=== PATIENT | male | born 1950 | race Caucasian/White ===

== ENCOUNTER 2019-07-06 13:52 | Emergency (ER) | payer MEDICARE, OTHER ==
[2019-07-06] MEDS ORDERED: Ketorolac 30 MG/ML SDV IVPUSH ONE (14:39)
--- NOTE | 2019-07-06 14:49 | EDM.PDOC ---
ED HPI GENERAL MEDICAL PROBLEM - General Chief Complaint: Back Pain or Injury Stated Complaint: STOMACH ISSUIES Time Seen by Provider: 07/06/19 14:40 Source of Information: Reports: Patient History Limitations: Reports: No Limitations - History of Present Illness INITIAL COMMENTS - FREE TEXT/NARRATIVE: c/o LBP pt with chronic LBP, got worse 10d ago for 24h, went to [facility] in [place] 8d ago, u/a with no wbc, >30 rbc, few 911-20) epi and many (>50) bacteria dx with UTI and tx with tmp/smx ds BID x 3d pain went away for 3d and felt fine, returned for f/u 3d and u/a showed 0-5 wbc , 3-5 rbc, no epi, no bacteria, referral made to urology has not seen urology is in the past altho on Flomax x 2y since he had a hemorrhagic stroke and was hospitalized in [facility], states that he had a kidney infection then denies prior prostate problems (despite being on Flomax), denies prior kidney problems or kidney stones has htn being tx by Dr Tinoco, was started on a new BP pill 2y ago when [place] went [place] and did not check his BP for 2w, when he got home and had a large bleed on the R parietal area by 's description that pt and attribute to a BP 200/100 no prior labs, imaging or visits in this EMR pain 8/10 now, mainly across lower back no temp here, no f/c/d at home, no n/v, appetite okay he had urinary incontinence one day 10d ago, denies frequency or difficulty voiding now no BM today, has had constipation not able to walk from CVA and L hemiparesis, did go to PT last week Treatments BASTING MARKER: Reports: Acetaminophen Lowe back pain Pain Score (Numeric/FACES): 7 - Related Data Allergies Allergy/AdvReac Type Severity Reaction Status Date / Time Penicillins Allergy Itching Verified 07/06/19 14:02 Home Meds: Home Meds Acetaminophen [Tylenol Extra Strength] 500 mg BID 07/06/19 [History] Acetaminophen/HYDROcodone [[place] 325-5 MG] 1 tab PO Q6H PRN #6 tab 07/06/19 [Rx] Cholecalciferol (Vitamin D3) [Vitamin D3] 2,000 unit PO DAILY 07/06/19 [History] Ciprofloxacin [Ciprofloxacin HCl] 500 mg PO BID #28 tab 07/06/19 [Rx] Ketorolac [Toradol] 10 mg PO Q6H #20 tab 07/06/19 [Rx] Losartan [Cozaar] 50 mg PO DAILY 07/06/19 [History] Omeprazole 20 mg DAILY 07/06/19 [History] Tamsulosin HCl 0.4 mg BEDTIME 07/06/19 [History] amLODIPine Besylate [Amlodipine Besylate] 5 mg DAILY 07/06/19 [History] carvediloL [Carvedilol] 3.125 mg BID 07/06/19 [History] Past Medical History Cardiovascular History: Reports: Hypertension Gastrointestinal History: Reports: GERD Genitourinary History: Reports: UTI, Recurrent Neurological History: Reports: CVA Other Neuro History: CVA with L sided weakness - Infectious Disease History Infectious Disease History: Reports: Chicken Pox, Measles, Mumps - Past Surgical History Cardiovascular Surgical History: Reports: None GI Surgical History: Reports: Bariatric Procedure Social & Family History - Family History Family Medical History: Noncontributory - Tobacco Use Used Tobacco, but Quit: Yes Month/Year Tobacco Last Used: 2017 - Caffeine Use Caffeine Use: Reports: None - Recreational Drug Use Recreational Drug Use: No ED ROS GENERAL - Review of Systems Review Of Systems: See Below Constitutional: Reports: No Symptoms HEENT: Reports: No Symptoms Respiratory: Reports: No Symptoms Cardiovascular: Reports: No Symptoms Endocrine: Reports: No Symptoms GI/Abdominal: Reports: Abdominal Pain : Reports: No Symptoms Musculoskeletal: Reports: Back Pain Skin: Reports: No Symptoms Neurological: Reports: No Symptoms Psychiatric: Reports: No Symptoms Hematologic/Lymphatic: Reports: No Symptoms Immunologic: Reports: No Symptoms ED EXAM, GENERAL - Physical Exam Exam: See Below Exam Limited By: No Limitations General Appearance: Alert, WD/WN, Other (sitting in w/c, leaning forward slightly, has a slight grimace on his face and appears uncomfortable altho able to flex/ext back without inc pain) Nose: Normal Inspection Throat/Mouth: Normal Inspection, Normal Voice, No Airway Compromise Head: Atraumatic, Normocephalic Neck: Normal Inspection, Supple, Non-Tender, Full Range of Motion Cardiovascular: Regular Rate, Rhythm, No Edema, No Gallop, Other (2/6 YOLA at LSB ) GI/Abdominal: Normal Bowel Sounds, Soft, Non-Tender, No Distention, Other (no definite tender in lower quadrants, at flanks, or at suprapubic area, no CVAT b/ l) Back Exam: Normal Inspection, Full Range of Motion. No: CVA Tenderness (R), CVA Tenderness (L) Extremities: Normal Inspection, Non-Tender, No Pedal Edema, Other (LUE held flexed at 90 degrees across abd) Neurological: Alert, Oriented, CN II-XII Intact, Normal Cognition Psychiatric: Normal Affect, Normal Mood Skin Exam: Warm, Dry, Intact, Normal Color, No Rash Lymphatic: No Adenopathy Course - Vital Signs Last Recorded V/S: Last Vital Signs Temp 36.3 C 07/06/19 13:52 Pulse 64 07/06/19 13:52 Resp 18 07/06/19 13:52 BP 116/76 07/06/19 13:52 Pulse Ox 98 07/06/19 13:52 - Orders/Labs/Meds Orders: Active Orders 24 hr Category Date Time Status Abdomen Pelvis wo Cont [CT] Stat Exams 07/06/19 15:36 Taken CULTURE URINE [RM] Stat Lab 07/06/19 14:40 Received Morphine Med 07/06/19 17:02 Once 2 mg IVPUSH ONETIME ONE Sodium Chloride 0.9% [Normal Saline] 1,000 ml Med 07/06/19 15:45 Active IV ASDIRECTED Sodium Chloride 0.9% [Saline Flush] Med 07/06/19 15:26 Active 10 ml FLUSH ASDIRECTED PRN Peripheral IV Insertion Adult [OM.PC] Routine Oth 07/06/19 15:26 Ordered Medication Orders Sodium Chloride (Normal Saline) 1,000 mls @ 999 mls/hr IV ASDIRECTED ROMINA Last Admin: 07/06/19 15:39 Dose: 999 mls/hr Sodium Chloride (Saline Flush) 10 ml FLUSH ASDIRECTED PRN PRN Reason: Keep Vein Open Last Admin: 07/06/19 14:50 Dose: 10 ml Labs: Laboratory Tests 07/06/19 07/06/19 07/06/19 Range/Units 14:40 14:50 14:50 WBC 6.7 (4.5-12.0) X10-3/uL RBC 4.25 L (4.30-5.75) x10(6)uL Hgb 13.6 (13.5-17.8) g/dL Hct 39.9 (30.0-51.3) % MCV 93.8 (80-96) fL MCH 31.9 (27.7-33.6) pg MCHC 34.0 (32.2-35.4) g/dL RDW 11.9 (11.5-15.5) % Plt Count 232 (125-369) X10(3)uL MPV 7.7 (7.4-10.4) fL Neut % (Auto) 68.4 (46-82) % Lymph % (Auto) 22.6 (13-37) % [place] % (Auto) 5.6 (4-12) % Eos % (Auto) 2 (1.0-5.0) % Baso % (Auto) 1 (0-2) % Neut # (Auto) 4.5 (1.6-8.3) # Lymph # (Auto) 1.5 (0.6-5.0) # [place] # (Auto) 0.4 (0.0-1.3) # Eos # (Auto) 0.2 (0.0-0.8) # Baso # (Auto) 0.1 (0.0-0.2) # Sodium 139 (135-145) mmol/L Potassium 4.2 (3.5-5.3) mmol/L Chloride 102 (100-110) mmol/L Carbon Dioxide 28 (21-32) mmol/L BUN 20 H (7-18) mg/dL Creatinine 1.1 (0.70-1.30) mg/dL Est Cr Clr Drug Dosing 60.93 mL/min Estimated GFR (MDRD) > 60 (>60) BUN/Creatinine Ratio 18.2 (9-20) Glucose 98 (80-116) mg/dL Calcium 9.5 (8.6-10.2) mg/dL Total Bilirubin 0.7 (0.1-1.3) mg/dL AST 16 (5-25) IU/L ALT 17 (12-36) U/L Alkaline Phosphatase 50 L (56-112) IU/L C-Reactive Protein (0.5-0.9) mg/dL Total Protein 7.7 (6.0-8.0) g/dL Albumin 3.7 (3.2-4.6) g/dL Globulin 4.0 g/dL Albumin/Globulin Ratio 0.9 Urine Color Yellow (YELLOW) Urine Appearance Clear (CLEAR) Urine pH 5.0 (5.0-6.5) Ur Specific [place] 1.010 (1.010-1.025) Urine Protein Trace (NEGATIVE) mg/dL Urine Glucose (UA) Normal (NORMAL) mg/dL Urine Ketones 15 H (NEGATIVE) mg/dL Urine Occult Blood Negative (NEGATIVE) Urine Nitrite Negative (NEGATIVE) Urine Bilirubin Small H (NEGATIVE) Urine Urobilinogen 4 H (NEGATIVE) mg/dL Ur Leukocyte Esterase Small H (NEGATIVE) Urine RBC 0-5 (0-5) Urine WBC 0-5 (0-5) Ur Squamous Epith Cells Few H (NS,R,O) Amorphous Sediment Few Urine Bacteria Few H (NS) Urine Mucus Few H (NS) 07/06/19 Range/Units 14:50 WBC (4.5-12.0) X10-3/uL RBC (4.30-5.75) x10(6)uL Hgb (13.5-17.8) g/dL Hct (30.0-51.3) % MCV (80-96) fL MCH (27.7-33.6) pg MCHC (32.2-35.4) g/dL RDW (11.5-15.5) % Plt Count (125-369) X10(3)uL MPV (7.4-10.4) fL Neut % (Auto) (46-82) % Lymph % (Auto) (13-37) % [place] % (Auto) (4-12) % Eos % (Auto) (1.0-5.0) % Baso % (Auto) (0-2) % Neut # (Auto) (1.6-8.3) # Lymph # (Auto) (0.6-5.0) # [place] # (Auto) (0.0-1.3) # Eos # (Auto) (0.0-0.8) # Baso # (Auto) (0.0-0.2) # Sodium (135-145) mmol/L Potassium (3.5-5.3) mmol/L Chloride (100-110) mmol/L Carbon Dioxide (21-32) mmol/L BUN (7-18) mg/dL Creatinine (0.70-1.30) mg/dL Est Cr Clr Drug Dosing mL/min Estimated GFR (MDRD) (>60) BUN/Creatinine Ratio (9-20) Glucose (80-116) mg/dL Calcium (8.6-10.2) mg/dL Total Bilirubin (0.1-1.3) mg/dL AST (5-25) IU/L ALT (12-36) U/L Alkaline Phosphatase (56-112) IU/L C-Reactive Protein 3.0 H* (0.5-0.9) mg/dL Total Protein (6.0-8.0) g/dL Albumin (3.2-4.6) g/dL Globulin g/dL Albumin/Globulin Ratio Urine Color (YELLOW) Urine Appearance (CLEAR) Urine pH (5.0-6.5) Ur Specific [place] (1.010-1.025) Urine Protein (NEGATIVE) mg/dL Urine Glucose (UA) (NORMAL) mg/dL Urine Ketones (NEGATIVE) mg/dL Urine Occult Blood (NEGATIVE) Urine Nitrite (NEGATIVE) Urine Bilirubin (NEGATIVE) Urine Urobilinogen (NEGATIVE) mg/dL Ur Leukocyte Esterase (NEGATIVE) Urine RBC (0-5) Urine WBC (0-5) Ur Squamous Epith Cells (NS,R,O) Amorphous Sediment Urine Bacteria (NS) Urine Mucus (NS) Meds: Medications Generic Name Dose Route Start Last Admin Trade Name Freq PRN Reason Stop Dose Admin Sodium Chloride 1,000 mls @ 999 mls/hr 07/06/19 15:45 07/06/19 15:39 Normal Saline IV 999 mls/hr ASDIRECTED ROMINA Administration Sodium Chloride 10 ml 07/06/19 15:26 07/06/19 14:50 Saline Flush FLUSH 10 ml ASDIRECTED PRN Administration Keep Vein Open Discontinued Medications Generic Name Dose Route Start Last Admin Trade Name Freq PRN Reason Stop Dose Admin Ketorolac Tromethamine 30 mg 07/06/19 14:39 07/06/19 14:51 Toradol IVPUSH 07/06/19 14:40 30 mg ONETIME ONE Administration - Re-Assessments/Exams Free Text/Narrative Re-Assessment/Exam: 07/06/19 17:16 2.7 L UVJ stone on CT, almost through the bladder wall per Dr Campos, there is trabeculation of the bladder wall, prostate not enlarged per Dr Campos however, on GIOVANNY the prostate extended beyond the tip of the gloved finger, prostate not tender yet did have 2+ bogginess c/w infection, symmetric, no nodules, normal rectal tone pt was pain free x 3h after Toradol 30 mg IV, then did have some pain just prior to d/c and was given MS 2 mg IV at d/c, is driving Departure - Departure Time of Disposition: 17:02 Disposition: Home, Self-Care 01 Preliminary Cause of *Q: Sepsis & Multi System Organ Failure Condition: Good Clinical Impression: Left ureteral stone, Hydroureter on left, Acute prostatitis, Dehydration, Acute renal insufficiency, Elevated C-reactive protein (CRP) - Discharge Information *PRESCRIPTION DRUG MONITORING PROGRAM REVIEWED*: Not Applicable *COPY OF PRESCRIPTION DRUG MONITORING REPORT IN PATIENT JINNY: Not Applicable Prescriptions: Acetaminophen/HYDROcodone [[place] 325-5 MG] 1 tab PO Q6H PRN #6 tab PRN Reason: Pain Ciprofloxacin [Ciprofloxacin HCl] 500 mg PO BID #28 tab Ketorolac [Toradol] 10 mg PO Q6H #20 tab Instructions: Kidney Stones, Prostatitis Referrals: PCP,None [Ordering Only Provider] - Forms: ED Department Discharge Additional Instructions: Increase fluids. Strain your urine. For infection, take ciprofloxacin 500 mg 1 tab 2 times a day for 2 weeks. For spasm and pain, take ketorolac 10 mg 1 tab 4 times a day until the stone passes. For pain, take hydrocodone with acetaminophen 5/325 mg 1 tab every 6 hours as needed. No alcohol. Return to ED if you have pain at home that is not controlled or develop fever or other new symptoms. See a urologist in the next 7-10 days. Sepsis Event Note - Evaluation Sepsis Screening Result: No Definite Risk - Focused Exam Vital Signs: Vital Signs Temp Pulse Resp BP Pulse Ox 07/06/19 13:52 36.3 C 64 18 116/76 98 Date Exam was Performed: 07/06/19 Time Exam was Performed: 17:02 - My Orders Last 24 Hours: My Active Orders 07/06/19 14:40 CULTURE URINE [RM] Stat 07/06/19 15:26 Sodium Chloride 0.9% [Saline Flush] 10 ml FLUSH ASDIRECTED PRN Peripheral IV Insertion Adult [OM.PC] Routine 07/06/19 15:36 Abdomen Pelvis wo Cont [CT] Stat 07/06/19 15:45 Sodium Chloride 0.9% [Normal Saline] 1,000 ml IV ASDIRECTED 07/06/19 17:02 Morphine 2 mg IVPUSH ONETIME ONE - Assessment/Plan Last 24 Hours: My Active Orders 07/06/19 14:40 CULTURE URINE [RM] Stat 07/06/19 15:26 Sodium Chloride 0.9% [Saline Flush] 10 ml FLUSH ASDIRECTED PRN Peripheral IV Insertion Adult [OM.PC] Routine 07/06/19 15:36 Abdomen Pelvis wo Cont [CT] Stat 07/06/19 15:45 Sodium Chloride 0.9% [Normal Saline] 1,000 ml IV ASDIRECTED 07/06/19 17:02 Morphine 2 mg IVPUSH ONETIME ONE
[2019-07-06] MEDS ORDERED: Sodium Chloride 0.9% 10 ML Syringe FLUSH PRN (15:26)
[2019-07-06] MEDS ORDERED: Sodium Chloride 0.9% 1,000 ML IV SCH (15:45)
[2019-07-06] MEDS ORDERED: Morphine 2 MG/ML Syringe IVPUSH ONE (17:02)
--- NOTE | 2019-07-06 17:23 | CT ---
INDICATION: Complains of sharp low back pain and hematuria, prostatitis on physical exam, question renal calculus. CT ABDOMEN AND PELVIS WITHOUT CONTRAST: Spiral 2.5 mm axial sections were obtained through the abdomen and pelvis without contrast with sagittal and coronal reconstructions - renal calculus protocol - no comparisons. Total exam DLP was 1129.48 mGy/cm. The lower lung mcarthur and pleural spaces visualized showed suggestion of some minimal linear atelectatic change and fibrosis with no definite active infiltrate or effusion. The heart appeared to be at the upper limits of normal in size with coronary artery calcifications. No pericardial effusion was seen. A moderate to moderately large fixed hiatal hernia is noted. Postsurgical changes are noted adjacent to the spleen. The spleen was otherwise unremarkable. The pancreas appears fairly normal. Common bile duct is normal in caliber at the head of the pancreas. The gallbladder was not well seen but showed no definite calculi. The liver appeared grossly normal. The adrenal glands are unremarkable. There is suggestion of a tiny calculus in the lower middle pole of the right kidney. Several calculi are seen in the lower middle pole of the left kidney. No evidence of obstructive uropathy is seen at the right kidney. At the left kidney, there is pyelocaliectasis and ureterectasis at the path of the urinary bladder compatible with obstructed uropathy of moderate degree with a 2.7 mm calculus at the ureterovesical junction on the left. It appears to be towards the inside of the urinary bladder wall. This most likely represents a calculus that will pass - correlate clinically. Urinary bladder wall was thickened which could be on the basis of cystitis and should be correlated clinically. Calcifications are noted in the abdominal aorta, inferior mesenteric artery, iliac and femoral arteries, superior mesenteric artery. No abdominal aortic aneurysm is seen. The appendix appeared normal visualized on coronal images 75 through 88, and axial images 99 through 120. No evidence of free air or bowel obstruction was seen. Hypertrophic degenerative changes and disc disease are noted at L5-S1 and to a lesser degree at L4-5 with mild degree of retrolisthesis at L4-5. IMPRESSION: 1. Obstructive uropathy of moderate degree on the left due to a 2.7 mm calculus at the ureterovesical junction which appears to be in the process of passing through the wall of the urinary bladder. 2. Urinary bladder wall is thickened possibly representing cystitis. 3. ASHD/ASHD. 4. Renal cortical scarring and minimal cystic changes. 5. 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 6. Moderately large fixed hiatal hernia. Report was called to Dr. Cotter at 1640 hours. [facility]
== END 2019-07-06 17:30 | disposition home or self-care (01) ==
LOC: FB.ED 13:52
DX: N13.4 Hydroureter (principal); N20.1 Calculus of ureter; E86.0 Dehydration; N41.0 Acute prostatitis; N28.9 Disorder of kidney and ureter, unspecified; R79.82 Elevated C-reactive protein (CRP); I10 Essential (primary) hypertension; K21.9 Gastro-esophageal reflux disease without esophagitis; Z86.73 Personal history of transient ischemic attack (TIA), and cerebral infarction without residual deficits; Z87.891 Personal history of nicotine dependence; Z88.0 Allergy status to penicillin; Z79.899 Other long term (current) drug therapy
CPT/HCPCS: 36415; 74176; 80053; 81001; 82272; 85025; 86140; 87086; 96361; 96374; 96375; 99284; 99284-25; J1885; J2270; J7030

== ENCOUNTER 2020-09-11 08:46 | Emergency (ER) | payer MEDICARE, OTHER ==
[2020-09-11] MEDS ORDERED: Ondansetron 4 MG/2 ML SDV IVPUSH ONE (09:04)
[2020-09-11] MEDS ORDERED: Morphine 4 MG/ML VIAL IVPUSH ONE (09:04)
--- NOTE | 2020-09-11 09:19 | EDM.PDOC ---
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, he was at PT yesterday, went to sit in a chair next to the treadmill when the chair fell over and he landed on the floor he has had pain in his mid back from R to L which he thinks is d/t the fall altho he wonders if it could be a kidney stone he was up at midnight and has not slept d/t back pain, he called his son this AM who brings him to ED he has h/o HTN altho no prior CV hx EKG now with PRWP and possible old INWI (no Q's, small Rs only in II, III, F_, SR 98 pt had nonspecific discomfort across his upper chest for 3-4h during the night associated with sob he has no CP or sob now altho he winces when changes position in bed from pain in his back SH: lives independently with a female petroleum inspector supervisor who is home in bed, walks with walker, 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 ROS: has had COVID vax x 2 PMH: HTN, no known CAD, no HI, hemorrhagic CVA 2016, ureteral stone 2019 MPMP x 1y is neg - Related Data Allergies Allergy/AdvReac Type Severity Reaction Status Date / Time Penicillins Allergy Itching Verified 07/06/19 14:02 Home Meds: Home Meds Acetaminophen [Tylenol Extra Strength] 500 mg BID 07/06/19 [History] Acetaminophen/HYDROcodone [[place] 325-5 MG] 1 tab PO Q6H PRN #6 tab 07/06/19 [Rx] Cholecalciferol (Vitamin D3) [Vitamin D3] 2,000 unit PO DAILY 07/06/19 [History] Ciprofloxacin [Ciprofloxacin HCl] 500 mg PO BID #28 tab 07/06/19 [Rx] Ketorolac [Toradol] 10 mg PO Q6H #20 tab 07/06/19 [Rx] Losartan [Cozaar] 50 mg PO DAILY 07/06/19 [History] Omeprazole 20 mg DAILY 07/06/19 [History] Tamsulosin HCl 0.4 mg BEDTIME 07/06/19 [History] amLODIPine Besylate [Amlodipine Besylate] 5 mg DAILY 07/06/19 [History] carvediloL [Carvedilol] 3.125 mg BID 07/06/19 [History] Cyclobenzaprine HCl 5 mg PO TID #21 tablet 09/11/20 [Rx] Doxepin [SINEquan] 10 mg PO BEDTIME #30 cap 09/11/20 [Rx] traMADol HCl [Tramadol HCl] 50 mg PO Q8H PRN #15 tablet 09/11/20 [Rx] Past Medical History Cardiovascular History: Reports: Hypertension Gastrointestinal History: Reports: GERD Genitourinary History: Reports: UTI, Recurrent Neurological History: Reports: CVA Other Neuro History: CVA with L sided weakness - Infectious Disease History Infectious Disease History: Reports: Chicken Pox, Measles, Mumps - Past Surgical History Cardiovascular Surgical History: Reports: None GI Surgical History: Reports: Bariatric Procedure Social & Family History - Family History Family Medical History: No Pertinent Family History - Caffeine Use Caffeine Use: Reports: None ED ROS GENERAL - Review of Systems Review Of Systems: See Below Constitutional: Reports: No Symptoms HEENT: Reports: No Symptoms Respiratory: Reports: Shortness of Breath Cardiovascular: Reports: Chest Pain, Palpitations Endocrine: Reports: No Symptoms GI/Abdominal: Reports: No Symptoms : Reports: No Symptoms Musculoskeletal: Reports: Back Pain Skin: Reports: No Symptoms Neurological: Reports: No Symptoms Psychiatric: Reports: No Symptoms Hematologic/Lymphatic: Reports: No Symptoms Immunologic: Reports: No Symptoms ED EXAM, GI/ABD - Physical Exam Exam: See Below Exam Limited By: No Limitations General Appearance: Alert, WD/WN, Moderate Distress, Other (skin dry, difficulty finding comfortable position in bed, indicates most discomfort at R lower hemithorax posteriorly without CVAT or spasm) Eyes: Bilateral: EOMI Ears: Hearing Grossly Normal Nose: Normal Inspection Throat/Mouth: Normal Inspection, Normal Lips, Normal Teeth, Normal Voice, No Airway Compromise Head: Atraumatic, Normocephalic Neck: Normal Inspection, Supple, Non-Tender, Full Range of Motion Respiratory/Chest: No Respiratory Distress, Lungs Clear, Chest Non-Tender Cardiovascular: Regular Rate, Rhythm, No Edema, Other (1-2/6 YOLA at LSB, quiet precordium) GI/Abdominal Exam: Soft, Non-Tender, No Organomegaly, No Distention Back Exam: Normal Inspection, Full Range of Motion. No: CVA Tenderness (R), CVA Tenderness (L) Extremities: Other (AFO on L ankle) Neurological: Alert, Oriented, CN II-XII Intact, Normal Cognition Psychiatric: Normal Affect, Normal Mood Skin Exam: Warm, Dry, Intact, Normal Color, No Rash, Other (turgor wnl, no pretib edema) Lymphatic: No Adenopathy #1 Interpretation EKG Interpretation Comments: reported in HPI, no acute changes, SR 88 EKG 11-27-17 received from [place], low voltage R waves in inf & chest leads then as well without acute changes Course - Vital Signs Last Recorded V/S: Last Vital Signs Temp 36.6 C 09/11/20 08:54 Pulse 90 09/11/20 08:54 Resp 20 09/11/20 08:54 BP 162/90 H 09/11/20 08:54 Pulse Ox 94 L 09/11/20 08:54 - Orders/Labs/Meds Orders: Active Orders 24 hr Category Date Time Status EKG Documentation Completion [RC] ASDIRECTED Care 09/11/20 09:03 Active Chest 1V Frontal [CR] Stat Exams 09/11/20 09:24 Taken Chest Abdomen Pelvis wo Cont [CT] Stat Exams 09/11/20 09:04 Taken EKG 12 Lead [EK] Routine Ther 09/11/20 09:03 Ordered Labs: Laboratory Tests 09/11/20 09/11/20 09/11/20 Range/Units 08:55 08:55 08:55 WBC 9.7 (3.2-10.1) x10-3/uL RBC 4.55 (3.90-5.90) x10(6)uL Hgb 14.3 (12.9-17.7) g/dL Hct 42.6 (38.3-50.1) % MCV 93.7 (80.8-98.7) fL MCH 31.5 (27.0-33.3) pg MCHC 33.6 (28.7-35.3) g/dL RDW 13.0 (12.4-15.0) % Plt Count 221 (117-477) x10(3)uL MPV 9.1 (6.7-11.0) fL Neut % (Auto) 75.8 H (40.3-71.8) % Lymph % (Auto) 18.5 (15.8-45.3) % [place] % (Auto) 4.3 L (5.5-15.2) % Eos % (Auto) 1.1 (0.1-6.8) % Baso % (Auto) 0.3 (0.3-3.8) % Neut # (Auto) 7.4 H (1.7-6.9) x10-3/uL Lymph # (Auto) 1.8 (0.5-4.5) x10-3/uL [place] # (Auto) 0.4 (0.0-1.2) x10-3/uL Eos # (Auto) 0.1 (0.0-0.6) x10-3/uL Baso # (Auto) 0.0 (0.0-0.3) x10-3/uL PT 10.5 (9.0-11.1) sec INR 0.97 L (1.00-1.24) Sodium 143 (135-145) mmol/L Potassium 3.7 (3.5-5.3) mmol/L Chloride 102 (100-110) mmol/L Carbon Dioxide 30 (21-32) mmol/L BUN 23 H (7-18) mg/dL Creatinine 1.1 (0.70-1.30) mg/dL Est Cr Clr Drug Dosing TNP Estimated GFR (MDRD) > 60 (>60) BUN/Creatinine Ratio 20.9 H (9-20) Glucose 132 H (80-116) mg/dL Calcium 8.9 (8.6-10.2) mg/dL Total Bilirubin 0.5 (0.1-1.3) mg/dL AST 11 D (5-25) IU/L ALT 13 D (12-36) U/L Alkaline Phosphatase 62 (56-112) IU/L Troponin I (4.0-60.3) pg/mL C-Reactive Protein (0.5-0.9) mg/dL Total Protein 7.7 (6.0-8.0) g/dL Albumin 3.9 (3.2-4.6) g/dL Globulin 3.8 g/dL Albumin/Globulin Ratio 1.0 Urine Color (YELLOW) Urine Appearance (CLEAR) Urine pH (5.0-6.5) Ur Specific [place] (1.010-1.025) Urine Protein (NEGATIVE) mg/dL Urine Glucose (UA) (NORMAL) mg/dL Urine Ketones (NEGATIVE) mg/dL Urine Occult Blood (NEGATIVE) Urine Nitrite (NEGATIVE) Urine Bilirubin (NEGATIVE) Urine Urobilinogen (NEGATIVE) mg/dL Ur Leukocyte Esterase (NEGATIVE) Urine RBC (0-5) Urine WBC (0-5) Ur Squamous Epith Cells (NS,R,O) Calcium Oxalate Crystal (NS) Urine Bacteria (NS) Urine Mucus (NS) 09/11/20 09/11/20 Range/Units 08:55 09:05 WBC (3.2-10.1) x10-3/uL RBC (3.90-5.90) x10(6)uL Hgb (12.9-17.7) g/dL Hct (38.3-50.1) % MCV (80.8-98.7) fL MCH (27.0-33.3) pg MCHC (28.7-35.3) g/dL RDW (12.4-15.0) % Plt Count (117-477) x10(3)uL MPV (6.7-11.0) fL Neut % (Auto) (40.3-71.8) % Lymph % (Auto) (15.8-45.3) % [place] % (Auto) (5.5-15.2) % Eos % (Auto) (0.1-6.8) % Baso % (Auto) (0.3-3.8) % Neut # (Auto) (1.7-6.9) x10-3/uL Lymph # (Auto) (0.5-4.5) x10-3/uL [place] # (Auto) (0.0-1.2) x10-3/uL Eos # (Auto) (0.0-0.6) x10-3/uL Baso # (Auto) (0.0-0.3) x10-3/uL PT (9.0-11.1) sec INR (1.00-1.24) Sodium (135-145) mmol/L Potassium (3.5-5.3) mmol/L Chloride (100-110) mmol/L Carbon Dioxide (21-32) mmol/L BUN (7-18) mg/dL Creatinine (0.70-1.30) mg/dL Est Cr Clr Drug Dosing Estimated GFR (MDRD) (>60) BUN/Creatinine Ratio (9-20) Glucose (80-116) mg/dL Calcium (8.6-10.2) mg/dL Total Bilirubin (0.1-1.3) mg/dL AST (5-25) IU/L ALT (12-36) U/L Alkaline Phosphatase (56-112) IU/L Troponin I 5.6 (4.0-60.3) pg/mL C-Reactive Protein 0.9 (0.5-0.9) mg/dL Total Protein (6.0-8.0) g/dL Albumin (3.2-4.6) g/dL Globulin g/dL Albumin/Globulin Ratio Urine Color Yellow (YELLOW) Urine Appearance Clear (CLEAR) Urine pH 5.0 (5.0-6.5) Ur Specific [place] 1.020 (1.010-1.025) Urine Protein Negative (NEGATIVE) mg/dL Urine Glucose (UA) Normal (NORMAL) mg/dL Urine Ketones Negative (NEGATIVE) mg/dL Urine Occult Blood Negative (NEGATIVE) Urine Nitrite Negative (NEGATIVE) Urine Bilirubin Negative (NEGATIVE) Urine Urobilinogen Normal (NEGATIVE) mg/dL Ur Leukocyte Esterase Negative (NEGATIVE) Urine RBC 0-5 (0-5) Urine WBC 0-5 (0-5) Ur Squamous Epith Cells Few H (NS,R,O) Calcium Oxalate Crystal Moderate H (NS) Urine Bacteria Rare H (NS) Urine Mucus Many H (NS) Meds: Medications Discontinued Medications Generic Name Dose Route Start Last Admin Trade Name Freq PRN Reason Stop Dose Admin Hydromorphone HCl 1 mg 09/11/20 09:34 09/11/20 09:41 Hydromorphone 2 Mg/Ml Sdv IVPUSH 09/11/20 09:35 1 mg ONETIME ONE Administration Hydromorphone HCl 0.5 mg 09/11/20 11:39 Hydromorphone 2 Mg/Ml Sdv IVPUSH 09/11/20 11:40 ONETIME ONE Sodium Chloride 1,000 mls @ 999 mls/hr 09/11/20 09:26 Normal Saline IV 09/11/20 10:26 .BOLUS ONE Ketorolac Tromethamine 15 mg 09/11/20 09:45 09/11/20 09:48 Ketorolac 30 Mg/Ml Sdv IVPUSH 09/11/20 09:46 15 mg ONETIME ONE Administration Morphine Sulfate 4 mg 09/11/20 09:04 09/11/20 09:18 Morphine 4 Mg/Ml Vial IVPUSH 09/11/20 09:05 4 mg ONETIME ONE Administration Ondansetron HCl 4 mg 09/11/20 09:04 09/11/20 09:16 Ondansetron 4 Mg/2 Ml Sdv IVPUSH 09/11/20 09:05 4 mg ONETIME ONE Administration - Re-Assessments/Exams Free Text/Narrative Re-Assessment/Exam: 09/11/20 09:47 Temi Kelley called at [facility] for comparison EKG, EKG requested MICHELE for pt with c/o CP, our fax number provided by ELOY Freeman to Temi 09/11/20 12:11 old and new EKGs unchanged copy of CT (chest/abd/pelvis) reviewed with pt, and son. Copy given to son for pt's records. Pt's sister pharmacist at [facility], Rx x 2 send there, tramadol rx printed. hx/PE/labs/imaging all c/w mid back sprain with spasm, pt rolled on his side and had no tender of T or L spine, did have 1+ paravertebral tender, pt reported no pain when he chair tipped over 2d ago, onset of pain was 1a today, which seems to have d/t stiffness developing during the night as he was up most of the rest of the night pt with initial benefit from MS, Dilaudid and Toradol to pain at 1-2/10, said he wanted additional meds at d/c as was given another dose of Dilaudid 0.5 mg, did have some sedation pain management discussed at length with pt and son and PO 94% on RA at d/c Departure - Departure Time of Disposition: 12:00 Disposition: Home, Self-Care 01 Condition: Good Clinical Impression: Mid-back pain, acute, Thoracic back sprain, Spasm of thoracic back muscle - Discharge Information *PRESCRIPTION DRUG MONITORING PROGRAM REVIEWED*: Yes *COPY OF PRESCRIPTION DRUG MONITORING REPORT IN PATIENT JINNY: No Prescriptions: Cyclobenzaprine HCl 5 mg PO TID #21 tablet Doxepin [SINEquan] 10 mg PO BEDTIME #30 cap traMADol HCl [Tramadol HCl] 50 mg PO Q8H PRN #15 tablet PRN Reason: Pain Instructions: Acute Back Pain, Adult, Muscle Cramps and Spasms Additional Instructions: For pain and inflammation, take Aleve 1 tab 3 times a day for 3 days. For pain and inflammation, take acetaminophen 500 mg 2 tabs 3 times a day for 1 week, longer if needed. For spasm, take cyclobenzaprine 5 mg 1 tab 3 times a day for 7 days. For pain, take tramadol 50 mg 1 tab every 8 hours as needed. No alcohol. For pain (and sleep), take doxepin 10 mg 1 tab at bedtime. May increase to 2 tabs at bedtime after several days, as needed. For pain and spasm, use heating pad for 10 minutes 3-4 times a day. Do gentle massage for several minutes after heating pad. Sleep on a firm mattress. Limit activity for 24 hours. Continue with PT in 2 days as scheduled. See your doctor in 2-3 days for further recommendations. Return to ED if you have pain that is not controlled at home or develop additional symptoms. Sepsis Event Note (ED) - Focused Exam Vital Signs: Vital Signs Temp Pulse Resp BP Pulse Ox 09/11/20 08:54 36.6 C 90 20 162/90 H 94 L - My Orders Last 24 Hours: My Active Orders 09/11/20 09:03 EKG Documentation Completion [RC] ASDIRECTED EKG 12 Lead [EK] Routine 09/11/20 09:04 Chest Abdomen Pelvis wo Cont [CT] Stat 09/11/20 09:24 Chest 1V Frontal [CR] Stat - Assessment/Plan Last 24 Hours: My Active Orders 09/11/20 09:03 EKG Documentation Completion [RC] ASDIRECTED EKG 12 Lead [EK] Routine 09/11/20 09:04 Chest Abdomen Pelvis wo Cont [CT] Stat 09/11/20 09:24 Chest 1V Frontal [CR] Stat
[2020-09-11] MEDS ORDERED: Sodium Chloride 0.9% 1,000 ML IV ONE (09:26)
[2020-09-11] MEDS ORDERED: HYDROmorphone 2 MG/ML SDV IVPUSH ONE ×2 (09:34→11:39)
[2020-09-11] MEDS ORDERED: Ketorolac 30 MG/ML SDV IVPUSH ONE (09:45)
--- NOTE | 2020-09-12 12:02 | CR ---
INDICATION: Short of breath, chest pain times 3 to 4 hours during the night. CHEST, ONE VIEW: An AP upright portable view of the chest was obtained 09/11/20 and revealed what appears to be infiltration at the left lung base with blunting of the costophrenic angle. Findings could represent pneumonia and pleuritis in that area. Very poor inspiration is noted emphasizing markings. The heart did not appear grossly enlarged. Overlying EKG leads are noted. Clips are noted overlying the medial left lower chest/left upper quadrant compatible with previous gastric surgery. IMPRESSION: 1. There is an appearance of possible infiltrate and small effusion at the left lung base. Full inspiration PA and lateral views of the chest are recommended for confirmation as findings may represent a minimal pneumonia and pleuritis. 2. What appears to be healing rib fractures noted at the lower left lateral ribs. MTDD
== END 2020-09-11 12:34 | disposition home or self-care (01) ==
LOC: FB.ED 08:46
DX: S23.3XXA Sprain of ligaments of thoracic spine, initial encounter (principal); I10 Essential (primary) hypertension; K21.9 Gastro-esophageal reflux disease without esophagitis; Z86.73 Personal history of transient ischemic attack (TIA), and cerebral infarction without residual deficits; Z88.0 Allergy status to penicillin; Z79.899 Other long term (current) drug therapy; W07.XXXA Fall from chair, initial encounter
CPT/HCPCS: 36415; 71045; 71250; 74176; 80053; 81001; 84484; 85025; 85610; 86140; 93005; 96374; 96375; 96376; 99284; J1170; J1885; J2270; J2405; J7030

== ENCOUNTER 2022-08-17 23:22 | Emergency (ER) | payer MEDICARE, OTHER ==
[2022-08-17] MEDS ORDERED: Sodium Chloride 0.9% 10 ML Syringe FLUSH PRN (23:28)
[2022-08-18] LABS: ESTIMATED GFR 72 mL/min (>60)
[2022-08-18] MEDS ORDERED: Iopamidol 755 Mg/ML 100 ML Bottle IV ONE (01:38)
== END 2022-08-18 03:05 | disposition home or self-care (01) ==
LOC: FB.ED 23:22
DX: K59.00 Constipation, unspecified (principal); N20.0 Calculus of kidney; K21.9 Gastro-esophageal reflux disease without esophagitis; I10 Essential (primary) hypertension; Z87.891 Personal history of nicotine dependence; Z88.0 Allergy status to penicillin; Z79.899 Other long term (current) drug therapy
CPT/HCPCS: 36415; 74177; 80053; 81001; 82150; 83690; 85025; 99283; 99284; Q9967

== ENCOUNTER 2022-10-01 14:52 | Emergency (ER) | payer MEDICARE, OTHER | END 2022-10-01 17:32 | disposition home or self-care (01) | LOC: FB.ED 14:52 | DX: S06.0X0A Concussion without loss of consciousness, initial encounter (principal); I10 Essential (primary) hypertension; K21.9 Gastro-esophageal reflux disease without esophagitis; Z86.73 Personal history of transient ischemic attack (TIA), and cerebral infarction without residual deficits; Z88.0 Allergy status to penicillin; Z79.899 Other long term (current) drug therapy; W18.30XA Fall on same level, unspecified, initial encounter | CPT/HCPCS: 70450; 73610-LT; 99284 ==

== ENCOUNTER 2025-01-17 13:36 | Emergency (ER) | payer MEDICARE, OTHER ==
[2025-01-17 13:57] LABS: BASOPHILS ABSOLUTE AUTO 0.0 x10-3/uL (0.0-0.3); BASOPHILS PERCENT AUTO 0.4 % (0.3-3.8); EOSINOPHILS ABSOLUTE AUTO 0.1 x10-3/uL (0.0-0.6); EOSINOPHILS PERCENT AUTO 1.1 % (0.1-6.8); LYMPHOCYTES ABSOLUTE AUTO 2.3 x10-3/uL (0.5-4.5); LYMPHOCYTES PERCENT AUTO 36.2 % (15.8-45.3); MEAN PLATELET VOLUME 8.3 fL (6.7-11.0); MONOCYTES ABSOLUTE AUTO 0.4 x10-3/uL (0.0-1.2); MONOCYTES PERCENT AUTO 6.3 % (5.5-15.2); NEUTROPHILS ABSOLUTE AUTO 3.5 x10-3/uL (1.7-6.9); NEUTROPHILS PERCENT AUTO 56.0 % (40.3-71.8); PLATELET COUNT,PLT 188 x10(3)uL (117-477); RED BLOOD CELL COUNT 4.45 x10(6)uL (3.90-5.90); RED CELL DISTRIBUTION WIDTH 13.0 % (12.4-15.0); WHITE BLOOD CELL COUNT,WBC 6.2 x10-3/uL (3.2-10.1)
[2025-01-17 14:10] LABS: BLOOD UREA NITROGEN,BUN 10 mg/dL (7-18); CARBON DIOXIDE,CO2 31 mmol/L (21-32); CHLORIDE,CL 101 mmol/L (100-110); CREATININE 1.0 mg/dL (0.70-1.30); ESTIMATED GFR 79 mL/min (>60); GLUCOSE RANDOM 98 mg/dL (80-116); POTASSIUM,K 4.2 mmol/L (3.5-5.3); SODIUM,NA 136 mmol/L (135-145)
[2025-01-17 14:16] LABS: A/G RATIO 1.1; ALANINE AMINOTRANSFERASE,ALT 16 U/L (12-36); ASPARTATE AMNIOTRANSFERASE,AST 14 IU/L (5-25); BILIRUBIN TOTAL 1.0 mg/dL (0.1-1.3); PROTEIN TOTAL,TP 6.6 g/dL (6.0-8.0)
== END 2025-01-17 15:35 | disposition home or self-care (01) ==
LOC: FB.ED 13:36
DX: Z04.3 Encounter for examination and observation following other accident (principal); I10 Essential (primary) hypertension; K21.9 Gastro-esophageal reflux disease without esophagitis; Z98.84 Bariatric surgery status; Z88.0 Allergy status to penicillin; Z79.899 Other long term (current) drug therapy
CPT/HCPCS: 36415; 80053; 85025; 86140; 99284